=== PATIENT | female | born 1965 | race American Indian/Alaskan Native ===

== ENCOUNTER 2017-03-05 06:14 | Day surgery (SDC) | payer BC ==
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
--- NOTE | 2017-03-05 08:02 | Anesthesia Day of Surgery ---
Anesthesia Day of Surgery - Day of Surgery Patient Examined: Yes Patient H&P Reviewed: Yes Patient is NPO: Yes
--- NOTE | 2017-03-05 08:08 | Discharge Summary ---
Providers - Providers Date of discharge: 03/05/17 Attending physician: MANUEL OWUSU Hospitalization Reason for admission: outpatient EGD Condition: Stable Procedures: EGD Disposition: - TO HOME OR SELFCARE Core Measure Documentation - Palliative Care Palliative Care/ Comfort Measures: Not Applicable - Core Measures Any of the following diagnoses?: none Exam - Physical Exam Narrative exam: unchanged since preop - Constitutional Vitals: Temp Pulse Resp BP Pulse Ox 98.5 F 74 12 146/76 99 03/05/17 07:59 03/05/17 07:59 03/05/17 07:59 03/05/17 07:59 03/05/17 07:59 Plan Activity: advance as tolerated Diet: low carbohydrate Follow up with: KARLOS SALMERON [Other] - 7 Days
[2017-03-05] MEDS: NACL 0.9% 1000 ML 1,000 ML IV SCH ×2 (08:23→10:06)
[2017-03-05] MEDS ORDERED: DIPRIVAN 10 MG/ML IV ONE (08:24)
--- NOTE | 2017-03-05 09:33 | Operative Report ---
Operative Report Operative Report: DATE: 03/05/2017 OPERATIVE REPORT - EGD PREOP DIAGNOSIS: gastric dyspepsia POSTOP DIAGNOSIS: Failure of gastrojejunostomy. Pouch gastritis SURGERY: Upper endoscopy. SURGEON: Riki Lynch M.D. PAINT PROCESS ENGINEER: Dion Robles M.D. TYPE OF ANESTHESIA: MAC. ESTIMATED BLOOD LOSS: None. COMPLICATIONS: None. SPECIMENS REMOVED: None. FINDINGS: 1. normal esophagus 2. Pouch gastritis 3. enterogastric reflux 4. Failure of gastrojejunostomy (30mm) 5. gastric pouch - 40ml INDICATIONS:INDICATION FOR PROCEDURE: Patient is a 52-year-old female s/p gastric bypass in 2002. The patient is here today for evaluation for revisional surgery. The patient is here for a planned EGD for gastric dyspepsia. PROCEDURE DETAILS: After consent was reviewed, patient was taken back to the operating room where patient was placed in the left lateral decubitus position and a bite block was placed in the mouth. After a time-out was called, MAC anesthesia was initiated. I then passed the endoscope into the patients oropharynx, into the esophagus, visualized the entire esophagus, which was all within normal limits. I then visualized the gastric pouch which showed gastritis and was about 40ml in size. The gastrojejunal anastomosis was dilated at about 30mm and I could visualized enterogastric reflux. The proximal portion of the justino limb was normal. I then desufflated the gastric pouch and removed the endoscope. Patient tolerated procedure well and was transferred to recovery room in good and stable condition
[2017-03-05 09:52] VITALS: BP 129/70
--- NOTE | 2017-03-05 10:01 | Post Anesthesia Evaluation ---
- Post Anesthesia Evaluation Patient Participated: Yes Airway Patent: Yes Stable Respiratory Function: Yes Nausea/Vomiting: No Temp > 96.8F: Yes Pain Manageable: Yes Adequeate Hydration: Yes Anesthesia Complications: No Block Receding Appropriately: Not Applicable Patient on Ventilator: No
== END 2017-03-05 06:15 | disposition home or self-care (01) ==
LOC: GIO 06:14
PROVIDERS: ATTEND Specialist
DX: K91.89 Other postprocedural complications and disorders of digestive system (principal); K29.70 Gastritis, unspecified, without bleeding; K21.9 Gastro-esophageal reflux disease without esophagitis; E66.01 Morbid (severe) obesity due to excess calories; Z68.43 Body mass index [BMI] 50.0-59.9, adult; Z87.891 Personal history of nicotine dependence; Z98.51 Tubal ligation status; Z98.890 Other specified postprocedural states; Z83.6 Family history of other diseases of the respiratory system; Z82.49 Family history of ischemic heart disease and other diseases of the circulatory system; Z83.49 Family history of other endocrine, nutritional and metabolic diseases
CPT/HCPCS: 43235; J2704; J7030

== ENCOUNTER 2017-08-20 07:11 | Inpatient (IN) | payer BC ==
[~2017-08-20 07:11] MED LIST: ANCEF/STERILE WATER 2 GM/20 ML 2 GM/20 ML SYRINGE IV NR; APRESOLINE IV PRN; FLAGYL 500 MG/100 ML 500 MG/100 ML BAG IV NR; LOVENOX SUB-Q NR; MORPHINE IV PRN; MYLICON PO PRN; NACL 0.9% 1000 ML 1,000 ML IV SCH; PEPCID IV NR; REGLAN IV PRN; TRANSDERM-SCOP TD NR; TRANSDERM-SCOP TD SCH; VERSED IV NR; ZOFRAN IV PRN
[2017-08-20] MEDS ORDERED: WATER FOR IRRIG STERILE IR ONE (07:29)
[2017-08-20] MEDS: LACTATED RINGERS 1,000 ML IV SCH ×2 (08:30→17:02)
[2017-08-20] MEDS ORDERED: MARCAINE 0.25% INFILTRATI ONE (08:35)
[2017-08-20] MEDS ORDERED: XYLOCAINE 1% 20 mL ONE (08:35)
[2017-08-20] MEDS ORDERED: MARCAINE 0.5% 30 ML INFILTRATI ONE (08:39)
--- NOTE | 2017-08-20 08:44 | Anesthesia Day of Surgery ---
Anesthesia Day of Surgery - Day of Surgery Patient Examined: Yes Patient H&P Reviewed: Yes Patient is NPO: Yes
--- NOTE | 2017-08-20 08:44 | Anesthesia Consultation ---
Anesthesia Consult and Med Hx Date of service: 08/20/17 - Airway Anesthetic Teeth Evaluation: Good ROM Head & Neck: Adequate Mental/Hyoid Distance: Adequate Mallampati Class: Class II Intubation Access Assessment: Probably Good - Pulmonary Exam CTA: Yes - Cardiac Exam Cardiac Exam: RRR Anesthetic Concerns: Titanium dental implants - Pre-Operative Health Status ASA Pre-Surgery Classification: ASA3 - Pulmonary Hx Smoking: Yes (FOR 10 YEARS, QUIT IN 2000) Hx Sleep Apnea: Yes - Central Nervous System Hx Psychiatric Problems: No - Other Systems Hx Alcohol Use: Yes (OCCAS) Hx Substance Use: No Hx Cancer: No Hx Obesity: Yes (morbid)
[2017-08-20] MEDS ORDERED: SUBLIMAZE ONE (08:47)
[2017-08-20] MEDS ORDERED: DIPRIVAN 10 MG/ML IV ONE (08:47)
[2017-08-20] MEDS ORDERED: XYLOCAINE MPF 2% ONE (08:48)
[2017-08-20] MEDS ORDERED: MORPHINE IV PRN (08:48)
[2017-08-20] MEDS ORDERED: DECADRON ONE (09:22)
[2017-08-20] MEDS ORDERED: ZOFRAN ONE (09:22)
[2017-08-20] MEDS ORDERED: ROBINUL ONE (09:23)
[2017-08-20] MEDS ORDERED: ZEMURON IV ONE ×2 (09:23→09:53)
[2017-08-20] MEDS ORDERED: NACL 0.9% 100 ML ONE (09:23)
[2017-08-20] MEDS ORDERED: NEO SYNEPHRINE ONE (09:23)
[2017-08-20] MEDS ORDERED: DILAUDID ONE (09:36)
[2017-08-20] MEDS ORDERED: TORADOL ONE (09:38)
[2017-08-20] MEDS ORDERED: LACTATED RINGERS 1,000 ML ONE (09:52)
[2017-08-20] MEDS ORDERED: BREVIBLOC IV ONE (10:00)
[2017-08-20] MEDS ORDERED: NACL 0.9% IR ONE ×2 (10:17→10:18)
[2017-08-20] MEDS ORDERED: XYLOCAINE 1% 20 mL INFILTRATI ONE (10:17)
[2017-08-20] MEDS ORDERED: MARCAINE 0.5% INFILTRATI ONE (10:18)
--- NOTE | 2017-08-20 11:44 | Post Anesthesia Evaluation ---
- Post Anesthesia Evaluation Patient Participated: Yes Airway Patent: Yes Stable Respiratory Function: Yes Temp > 96.8F: Yes Pain Manageable: Yes Adequeate Hydration: Yes Anesthesia Complications: No
[2017-08-21] MEDS: NORCO PO PRN ×2 (01:14→09:19)
[2017-08-21 09:36] LABS: Basophils % (Auto) 0.3 % (0.0-1.8); Eosinophils % (Auto) 0.4 % (0.0-4.3); Hematocrit 44.4 % (30.3-42.9); Hemoglobin 14.4 gm/dl (10.1-14.3); Mean Corpuscular HGB Conc 32 % (30-34); Mean Corpuscular Hemoglobin 32 pg (28-32); Mean Corpuscular Volume 97 fl (79-97); Platelet Count 204 K/mm3 (140-440); Red Blood Count 4.57 M/mm3 (3.65-5.03); Red Cell Distribution Width 13.4 % (13.2-15.2); White Blood Count 10.9 K/mm3 (4.5-11.0)
[2017-08-21 09:54] LABS: Alanine Aminotransferase 46 units/L (7-56); Albumin 3.7 g/dL (3.9-5); Albumin/Globulin Ratio 1.1 %; Alkaline Phosphatase 90 units/L (35-129); Anion Gap 18 mmol/L; BUN/Creatinine Ratio 28; Blood Urea Nitrogen 11 mg/dL (7-17); Calcium 9.6 mg/dL (8.4-10.2); Carbon Dioxide 22 mmol/L (22-30); Chloride 102.7 mmol/L (98-107); Glucose 97 mg/dL (65-100); Potassium 4.4 mmol/L (3.6-5.0); Sodium 138 mmol/L (137-145); Total Protein 7.2 g/dL (6.3-8.2)
[2017-08-21] MEDS ORDERED: LOVENOX SUB-Q SCH (10:00)
[2017-08-21 13:09] VITALS: BP 153/81
--- NOTE | 2017-08-21 17:33 | Discharge Summary ---
Providers - Providers Date of Admission: 08/20/17 07:11 Attending physician: MANUEL OWUSU Primary care physician: JESSICA NOE Hospitalization Reason for admission: surgery Condition: Good Procedures: laparoscopic revision of GJ anatomosis and lengthening of biliopancreatic limb. Hospital course: 52 y.o. F with hx of gastric bypass presented to same day surgery for laparoscopic revision of GJ anatomosis and lengthening of biliopancreatic limb. She tolerated the procedure well. On POD 1 she tolerated liquids and her pain was controlled. She denies n/v. She ambulated well. She was discharged on POD 1 without complications. Disposition: DC-01 TO HOME OR SELFCARE Core Measure Documentation - Palliative Care Palliative Care/ Comfort Measures: Not Applicable - Core Measures Any of the following diagnoses?: none Exam - Physical Exam Narrative exam: Gen: A+Ox3 resp: equal rise and fall of chest abd: obese, soft, tender at incision sites. no rebound on guarding . incision sites cdi ext: no c/c/e - Constitutional Vitals: Temp Pulse Resp BP Pulse Ox 98.4 F 83 18 153/81 95 08/21/17 12:38 08/21/17 12:38 08/21/17 12:38 08/21/17 12:38 08/21/17 12:38 Plan Activity: other (no lifting >15lbs for 6 weeks ) Diet: clear liquids (sugar free clears ) Wound: keep clean and dry Additional Instructions: follow up for wellness check Follow up with: KARLOS SALMERON PA [Primary Care Provider] - 7 Days
== END 2017-08-21 15:37 | disposition home or self-care (01) | DRG 327 ==
LOC: 3A 07:11 → 3B-SURG 11:44
PROVIDERS: ADMIT Specialist; ATTEND Specialist
PROC: 0D164ZB Bypass Stomach to Ileum, Percutaneous Endoscopic Approach (ICD-10-PCS; principal; 2017-08-20)
PROC: 0BQT4ZZ Repair Diaphragm, Percutaneous Endoscopic Approach (ICD-10-PCS; principal; 2017-08-20)
DX: K95.89 Other complications of other bariatric procedure (principal); Z68.43 Body mass index [BMI] 50.0-59.9, adult; K21.9 Gastro-esophageal reflux disease without esophagitis; E66.01 Morbid (severe) obesity due to excess calories; G47.30 Sleep apnea, unspecified; K30 Functional dyspepsia; F32.9 Major depressive disorder, single episode, unspecified; K44.9 Diaphragmatic hernia without obstruction or gangrene; Z98.84 Bariatric surgery status; Z99.81 Dependence on supplemental oxygen; Z98.51 Tubal ligation status; Z82.49 Family history of ischemic heart disease and other diseases of the circulatory system; Z87.891 Personal history of nicotine dependence; Z72.89 Other problems related to lifestyle
CPT/HCPCS: 36415; 80053; 85025; A4217; C9250; J0690; J1100; J1170; J1650; J1885; J2250; J2270; J2370; J2405; J2704; J3010; J7120